=== PATIENT | female | born 1960 | race Caucasian/White ===

== ENCOUNTER 2016-08-27 11:21 | Outpatient (CLI) | payer MEDICARE, OTHER ==
--- NOTE | 2016-08-27 12:18 | DIAGNOSTIC IMAGING REPORT ---
PROCEDURE: XR KNEE 3 VIEWS - RIGHT INDICATION: ACUTE PX OF R KNEE TECHNIQUE: Three views. COMPARISON: None. FINDINGS: Mild patellofemoral compartment spurring. No fracture or suspicious osseous lesion. Small suprapatellar effusion. IMPRESSION: 1. Mild degenerative changes of the patellofemoral compartment 2. Small effusion suggest possible internal derangement.
== END 2016-08-27 23:00 | disposition home or self-care (01) ==
LOC: XR SRH 11:21
DX: M25.461 Effusion, right knee (principal); M17.11 Unilateral primary osteoarthritis, right knee